=== PATIENT | female | born 1975 | race Caucasian/White ===

== ENCOUNTER → 2018-11-18 | Outpatient (CLI) | payer OTHER ==
--- NOTE | 2018-11-22 12:17 | MM ---
Reason for exam: screening (asymptomatic). Last mammogram was performed 5 years and 3 months ago. History: Took hormonal contraceptives for 10 years beginning at age 15. Physical Findings: A clinical breast exam by your physician is recommended on an annual basis and results should be correlated with mammographic findings. MG Screening Mammo w CAD Bilateral CC and MLO view(s) were taken. Prior study comparison: August 21, 2013, CAD bilateral diagnostic mammogram. April 15, 2012, bilateral digital screening mammo w/CAD. The breast tissue is heterogeneously dense. This may lower the sensitivity of mammography. No suspicious abnormality. No significant changes when compared with prior studies. ASSESSMENT: Negative, BI-RAD 1 RECOMMENDATION: Routine screening mammogram of both breasts in 1 year.
== END | disposition home or self-care (01) ==
LOC: RADMAMWWP 13:08
PROVIDERS: ATTEND Obstetrics & Gynecology
DX: Z12.31 Encounter for screening mammogram for malignant neoplasm of breast (principal)
CPT/HCPCS: 77067

== ENCOUNTER → 2019-12-19 | Outpatient (CLI) | payer OTHER ==
--- NOTE | 2019-12-21 14:05 | EST ---
EXERCISE STRESS AGE: 42 SEX: F HT: 64 WT: PROTOCOL: Stress Echo STAGE: 3 DURATION OF EXERCISE: 7:45 HEART RATE REST: 70 BLOOD PRESSURE REST: 135/88 MAXIMUM HEART RATE ACHIEVED: 167 MAXIMUM BLOOD PRESSURE: 137/76 85% MPHR: 148 100% MPHR: 174 METS: 9.3 INDICATIONS: Chest pain. CLINICAL INFORMATION: Stress Data: Pretesting physical examination showed a heart rate of 70, pressure is 135/88 mmHg. Baseline EKG showed sinus mechanism. The patient exercised on treadmill according to [place] protocol for a total of 7 minutes and 45 seconds and achieved 9.3 METS. Max heart rate was 170 which is about 98% of maximum predicted heart rate. Maximum blood pressure was 167/76 mmHg. Clinically the patient did not have no symptoms of chest pain or chest discomfort. The EKG did not show any significant ST or T-wave abnormalities concerning for ischemia. CONCLUSION: 1. Excellent exercise tolerance. 2. Normal EKG in response to exercise. MMODL / IJN: [id number] /
== END | disposition home or self-care (01) ==
LOC: RADNMMAIN 08:15
PROVIDERS: ATTEND Family Medicine
DX: I10 Essential (primary) hypertension (principal); R07.89 Other chest pain
CPT/HCPCS: 93017

== ENCOUNTER → 2020-04-11 | Outpatient (CLI) | payer OTHER ==
--- NOTE | 2020-04-12 10:10 | MM ---
Reason for exam: additional evaluation requested from abnormal screening. Last mammogram was performed 1 month ago. History: Took hormonal contraceptives for 10 years beginning at age 15. Physical Findings: Nurse did not find any significant physical abnormalities on exam. MG Work Up Mamm w CAD LT LM, XCCM, and spot compression MLO view(s) were taken of the left breast. Prior study comparison: March 19, 2020, bilateral MG screening mammo w CAD. November 18, 2018, bilateral MG screening mammo w CAD. The breast tissue is heterogeneously dense. This may lower the sensitivity of mammography. Focal asymmetry present on compression and ML. This finding is changed when compared with previous exams. These results were verbally communicated with the patient and result sheet given to the patient on 04/11/20. ASSESSMENT: Incomplete: need additional imaging evaluation, BI-RAD 0 RECOMMENDATION: Ultrasound of the left breast.
--- NOTE | 2020-04-12 10:11 | USB ---
Reason for exam: additional evaluation requested from abnormal screening. History: Took hormonal contraceptives for 10 years beginning at age 15. US Breast Workup Limited LT Technologist: Pau Kerr Left limited breast ultrasound including focal area of concern, retroareolar and axilla demonstrates a 0.5 x 0.6 x 0.4cm circular, cystic lesion at 3 o'clock and a 0.4 x 0.3 x 0.3cm circular, cystic lesion at 6 o'clock. These results were verbally communicated with the patient and result sheet given to the patient on 04/11/20. ASSESSMENT: Benign, BI-RAD 2 RECOMMENDATION: Follow-up diagnostic mammogram of the left breast in 6 months.
== END | disposition home or self-care (01) ==
LOC: RADMAMWWP 10:32
PROVIDERS: ATTEND Family Medicine
DX: R92.8 Other abnormal and inconclusive findings on diagnostic imaging of breast (principal)
CPT/HCPCS: 77065

== ENCOUNTER → 2021-05-27 | Outpatient (CLI) | payer OTHER ==
--- NOTE | 2021-05-27 15:05 | MM ---
Reason for exam: clinical finding. Last mammogram was performed 1 year and 1 month ago. History: Took hormonal contraceptives for 10 years beginning at age 15. Physical Findings: Nurse did not find any significant physical abnormalities on exam. MG 3D Diag Mammo W/Cad JABIER Bilateral CC and MLO view(s) were taken. Spot compression CC, spot compression LM, and LM view(s) were taken of the left breast. Prior study comparison: March 19, 2020, bilateral MG screening mammo w CAD. The breast tissue is extremely dense which could obscure a lesion on mammography. Finding: There are intermediate concern, suspicious grouped/clustered fine calcifications in the 3 o'clock outer quadrant, middle position of the left breast. No significant changes in finding since March 19, 2020. These results were verbally communicated with the patient and result sheet given to the patient on 05/27/21. ASSESSMENT: Suspicious, BI-RAD 4 RECOMMENDATION: Stereotactic core biopsy of the left breast. Called Dr. Choe's office with mammographic findings and has scheduled an appointment for the patient for 07/10/20 at 11:[address] Wren. Biopsy scheduled for 06/16/21 at 9:30. PRELIMINARY REPORT CALLED AND FAXED TO DR. WREN ON 05/27/21.
== END | disposition home or self-care (01) ==
LOC: RADMAMWWP 13:07
PROVIDERS: ATTEND Obstetrics & Gynecology
DX: R92.8 Other abnormal and inconclusive findings on diagnostic imaging of breast (principal); N64.4 Mastodynia
CPT/HCPCS: 77062; 77066

== ENCOUNTER → 2021-06-16 | Day surgery (SDC) | payer OTHER ==
[2021-06-16 09:46] VITALS: RESP 16
[2021-06-16 10:45] VITALS: BP 138/92; PULSE 102; TEMP 98.6
--- NOTE | 2021-06-16 10:58 | MM ---
EXAMINATION TYPE: MG stereo VAD BX LT DATE OF EXAM: 06/16/2021 COMPARISON: Prior mammogram May 27, 2021 and older studies CLINICAL HISTORY: Abnormal mammogram, suspicious group of calcifications. TECHNIQUE: Stereotactic guided core biopsy of left breast with clip placement and follow-up two-view mammogram. FINDINGS: The procedure of stereotactic guided core biopsy was explained to the patient. Benefits, alternatives, and risks were discussed. An informed consent was then obtained. The [facility] pathway for biopsy was chosen. Shortness pathway was lateral approach. I performed the localization, then performed the remainder of the procedure. Overlying Skin is cleansed with Betadine. Lidocaine was used as anesthetic into the skin and deeper tissue. Lidocaine with epinephrine is used as anesthetic into the deeper tissue. A vacuum assisted biopsy gun was used to obtain multiple core samples. The patient tolerated the procedure well without any immediate complication. The patient was kept in the radiology department for short stay after the procedure and then discharged home in stable condition. Targeted calcifications are identified in specimen mammogram. Post biopsy mammogram shows the clip to appear in satisfactory position relative to the targeted area of concern on the preprocedure images. IMPRESSION: SUCCESSFUL, UNCOMPLICATED STEREOTACTIC GUIDED CORE BIOPSY OF AREA OF CONCERN IN THE LEFT BREAST, FULL PATHOLOGY RESULTS TO FOLLOW. Low index of suspicion noted at time of procedure. 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 Recommendation Surgical consult of the left breast. MAGALI
== END ==
LOC: RADMAMWWP 09:27
PROVIDERS: ATTEND Surgery
DX: D05.12 Intraductal carcinoma in situ of left breast (principal); Z17.0 Estrogen receptor positive status [ER+]
CPT/HCPCS: 88305; 88342; 88341; 19081; A4648; J2001

== ENCOUNTER 2021-07-28 07:50 | Day surgery (SDC) | payer OTHER ==
[2021-07-23 15:18] VITALS: BMI 24.9
--- NOTE | 2021-07-28 07:38 | P.GSHP ---
History of Present Illness H&P Date: 07/28/21 Chief Complaint: Left breast cancer 45-year-old female recently diagnosed with a suspicious area of calcifications left breast. Stereotactic core biopsy demonstrated high-grade DCIS. Patient was having some mild left breast pain prior to the diagnosis. She does not feel any masses. Family history of rectal cancer and lung cancer in 2 of her sisters. No family history of breast cancer. Patient underwent recent genetic testing by oncology that was negative. Past Medical History Past Medical History: Asthma, Cancer Additional Past Medical History / Comment(s): Stage 0 left breast cancer. History of Any Multi-Drug Resistant Organisms: None Reported Past Surgical History: Tubal Ligation, Uterine Ablation Additional Past Surgical History / Comment(s): uterine ablation Past Anesthesia/Blood Transfusion Reactions: Postoperative Nausea & Vomiting (PONV) Past Psychological History: No Psychological Hx Reported Smoking Status: Never smoker Past Alcohol Use History: Occasional Past Drug Use History: None Reported - Past Family History Mother Family Medical History: Congestive Heart Failure (CHF), Deep Vein Thrombosis (DVT) Additional Family Medical History / Comment(s): mother passedaway 2 yrs ago Medications and Allergies Home Medications Medication Instructions Recorded Confirmed Type Cetirizine HCl/Pseudoephedrine 1 each PO DAILY 08/10/14 07/23/21 History [Zyrtec-D Tablet] Fluticasone/Salmeterol [Advair 1 inhalation PO BID PRN 06/05/21 07/23/21 History 250-50 Diskus] Triamcinolone Acetonide [Nasacort] 1 spray EA NOSTRIL DIRECTED PRN 07/23/21 07/23/21 History Allergies Allergy/AdvReac Type Severity Reaction Status Date / Time No Known Allergies Allergy Verified 07/23/21 15:07 Surgical - Exam Physical exam: General: Well-developed, well-nourished HEENT: Normocephalic, sclerae nonicteric Right breast: No masses, no adenopathy Left breast: Mild induration at biopsy site, no mass, no adenopathy Abdomen: Nontender, nondistended Extremities: No edema Neuro: Alert and oriented Assessment and Plan (1) Cancer of left breast Narrative/Plan: 45-year-old female with stage 0 left breast cancer. We'll proceed with left breast wire localization lumpectomy with sentinel lymph node biopsy at this time. Risks of bleeding, infection, scarring, numbness, dimpling, pain, recurrence, weakness, lymphedema, possible need for further procedures. Patient understands and wishes to proceed. Status: Acute Code(s): C50.912 - MALIGNANT NEOPLASM OF UNSPECIFIED SITE OF LEFT FEMALE BREAST SNOMED Code(s): 447101655
[~2021-07-28 07:50] MED LIST: ACETAMINOPHEN TAB 500 MG TAB PO PRN; ALPRAZolam 0.5 MG TAB PO PRN; DEXAMETHASONE SOD PHOSPHATE 4 MG/ML 1 ML VIAL IV ONE; HEPARIN SODIUM,PORCINE/PF 5,000 UNIT/0.5 ML SYRINGE SQ PRN; HYDROmorphone 0.5 MG/0.5 ML SYRINGE IVP PRN; LACTATED RINGERS 1,000 ML IV SCH; ONDANSETRON 4 MG/2 ML VIAL IVP ONE; Pre Op ABX Message 1 EACH MISC MISCELLANE ONE
[2021-07-28] MEDS ORDERED: LIDOCAINE 1% INJ 10MG/ML (20 ML MDV) SQ ONE (09:43)
[2021-07-28] MEDS ORDERED: BUPIVACAIN-EPI 0.25%-1:200,000 30 ML VIAL SQ ONE ×3 (10:27→11:00)
[2021-07-28] MEDS ORDERED: diphenhydrAMINE 50 MG/ML 1 ML VIAL ONE (10:31)
[2021-07-28] MEDS ORDERED: MIDAZOLAM 2 MG/2 ML VIAL ONE (10:31)
[2021-07-28] MEDS ORDERED: fentaNYL (PF) 50 MCG/ML 2 ML AMP ONE (10:31)
[2021-07-28] MEDS ORDERED: HYDROmorphone (PF) 1 MG/ML ONE (10:31)
[2021-07-28] MEDS ORDERED: LIDOCAINE 1% INJ 10MG/ML (20 ML MDV) ONE (10:31)
[2021-07-28] MEDS ORDERED: PROPOFOL 10 MG/ML 20 ML VIAL IV ONE (10:31)
--- NOTE | 2021-07-28 10:31 | NM ---
EXAMINATION TYPE: NM sentinel node injection DATE OF EXAM: 07/28/2021 COMPARISON: 05/27/2021 HISTORY: 45-year-old female with left breast biopsy-proven DCIS, scheduled lumpectomy and sentinel no de dissection. TECHNIQUE AND FINDINGS: The procedure of sentinel lymph node injection was explained to the patient. The benefits, alternatives, and risks were discussed. An informed consent was then obtained. Overlying skin is cleaned with sterile alcohol. Following this, 515 uCi Tc99m Tilmanocept was inject ed in the upper outer aspect of the left nipple intradermally. The patient tolerated the procedure well without any immediate complication. The patient was kept in the radiology department for short stay after the procedure and then taken to surgery for surgical p rocedure what is presumed intraoperative gamma probe will be used for sentinel lymph node detection. IMPRESSION: Successful left breast radiotracer injection for sentinel node localization as above.
[2021-07-28] MEDS ORDERED: ceFAZolin 1,000 MG VIAL IVPB ONE (10:45)
[2021-07-28] MEDS ORDERED: HYDROcodone/APAP 5-325MG 1 EACH TAB PO PRN (12:02)
[2021-07-28] MEDS ORDERED: NALOXONE 0.4 MG/ML 1 ML VIAL IV PRN (12:02)
[2021-07-28 12:03] VITALS: TEMP 97.2
--- NOTE | 2021-07-28 12:05 | P.OP ---
Date of Procedure: 07/28/21 Procedure(s) Performed: PREOPERATIVE DIAGNOSIS: Left breast cancer POSTOPERATIVE DIAGNOSIS: Same PROCEDURE: Left Breast wire localization lumpectomy with sentinel lymph node biopsy SURGEON: Siena EBL: Minimal ANESTHESIA: General COMPLICATIONS: None OPERATIVE PROCEDURE: Patient was placed on the operating room table in the supine position. 2 mL of methylene blue was injected into the subareolar space. The breast was then massaged for 5 minutes. The breast was prepped and draped in usual sterile fashion. The left axilla was addressed at that time. The hot spot in the left axilla was identified. A small curvilinear incision was made using the scalpel. Dissection down through the subcutaneous tissues took place using electrocautery. Using the neoprobe I identified a total of sentinel lymph nodes. None of these were blue in color. These had benign exam characteristics. These were all removed and sent to pathology for permanent sectioning. The surgical site was inspected and no bleeding was seen. The subcutaneous tissues were closed using 3-0 Vicryl sutures. The skin was closed using 4-0 Monocryl sutures. The wire entrance site was then addressed. This was present at the 3:00 location. A curvilinear incision was made adjacent to the wire entrance site. I followed the wire down into the breast tissue. An adequate lumpectomy specimen then took place around the wire. Margins of 1.5-2 cm worth attempted to be achieved. Palpation of the specimen suggested that the medial margin was somewhat close. I took an additional margin medially and this margin was painted the appropriate color on the new margin side. The initial specimen was also painted the appropriate 6 colors. Clips were used to identify the lumpectomy cavity. The clip was confirmed to be within the lumpectomy specimen by radiology. The subcutaneous tissues were closed using 3-0 Vicryl sutures. The skin was closed using a running 4-0 Monocryl stitch. Skin glue was then applied. DISPOSITION: Stable to recovery room
[2021-07-28] MEDS ORDERED: KETOROLAC 15 MG/ML 1 ML VIAL IVP ONE ×2 (12:17→12:36)
--- NOTE | 2021-07-28 13:03 | MM ---
EXAMINATION TYPE: MG pre op needle loc LT, MG surgical specimen LT DATE OF EXAM: 07/28/2021 COMPARISON: 06/16/2021 CLINICAL HISTORY: 45-year-old female with biopsy-proven left breast DCIS here for lumpectomy. R92.8. TECHNIQUE: Needle localization with wire placement and surgical excision of area of concern in the 3: 00 left breast. FINDINGS: The procedure of needle localization with wire placement and than surgical excision was exp lained to the patient. Benefits, alternatives, and risks were discussed. An informed consent was th en obtained. The shortest pathway for procedure was chosen. Shortest pathway was a lateral approach. The overlyin g skin was prepped and draped in usual sterile fashion. Lidocaine was used as anesthetic into the sk in and subcutaneous tissue up to the level of area of concern. A 7 cm Kopan's needle was used. It w as placed via a lateral approach under mammographic guidance. Subsequent 90 degrees mammogram show t he needle to be in satisfactory position relative to the targeted area. At this point, wire was plac ed and the needle was withdrawn. The wire was fixed to patient's skin. Images were marked for surge on. The patient tolerated the procedure well without any immediate complication. The patient was kept in the radiology department for short stay after the procedure and then taken to surgery for surgical e xcision. Residual calcifications, clip, and wire are identified in specimen mammogram. The patient was kept in hospital for short stay after the procedure and then discharged home in stable condition. IMPRESSION: Successful, uncomplicated needle localization with wire placement and surgical excision of site of bi opsy-proven DCIS in the 3:00 left breast, full pathology results to follow.
[2021-07-28 14:42] VITALS: BP 124/81; PULSE 95; RESP 18
== END 2021-07-28 15:27 | disposition home or self-care (01) ==
LOC: OR 07:50
PROVIDERS: ATTEND Surgery
DX: D05.12 Intraductal carcinoma in situ of left breast (principal); Z80.0 Family history of malignant neoplasm of digestive organs; Z80.1 Family history of malignant neoplasm of trachea, bronchus and lung; J45.909 Unspecified asthma, uncomplicated; Z98.51 Tubal ligation status; Z98.890 Other specified postprocedural states; Z82.49 Family history of ischemic heart disease and other diseases of the circulatory system; Z79.899 Other long term (current) drug therapy
CPT/HCPCS: 81025; 76098; 19281; 38792; 19301; 38525; C1819; A9520; J2250; J1200; J1100; J2405; J0690; J2001; J3010; J1170; J1885; J2704; J1644; 88307; 88341; 88342

== ENCOUNTER 2021-08-26 10:16 | Day surgery (SDC) | payer OTHER ==
[2021-08-22 10:42] VITALS: BMI 24.9
[~2021-08-26 10:16] MED LIST changes: -ALPRAZolam 0.5 MG TAB PO PRN; +DESMOPRESSIN ACETATE 16 MCG in SODIUM CHLORIDE 0.9% 50 ML IVPB PRN; -HEPARIN SODIUM,PORCINE/PF 5,000 UNIT/0.5 ML SYRINGE SQ PRN; -Pre Op ABX Message 1 EACH MISC MISCELLANE ONE
[2021-08-26] MEDS ORDERED: LIDOCAINE 1% (10MG/ML) FOR IV START INTRADERMA ONE (11:09)
--- NOTE | 2021-08-26 12:35 | P.GSHP ---
History of Present Illness H&P Date: 08/26/21 Chief Complaint: Left breast cancer 45-year-old female underwent left breast lumpectomy with sentinel lymph node biopsy on 07/28. Postoperatively the patient developed significant ecchymosis and hematoma formation at both operative sites. Final pathology showed a 9 mm high-grade DCIS. Closest margin was 1 mm and that was anteriorly. Patient was seen by hematology/oncology. The patient had workup for possible bleeding disorder which thus far has come back clear. Patient has been seen by radiation oncology as well. Patient here today for reexcision anterior margin and evacuation hematoma. Past Medical History Past Medical History: Asthma, Cancer Additional Past Medical History / Comment(s): Stage 0 left breast cancer History of Any Multi-Drug Resistant Organisms: None Reported Past Surgical History: Breast Surgery, Tubal Ligation, Uterine Ablation Additional Past Surgical History / Comment(s): uterine ablation. left breast lumpectomy Past Anesthesia/Blood Transfusion Reactions: Postoperative Nausea & Vomiting (PONV) Past Psychological History: No Psychological Hx Reported Smoking Status: Never smoker Past Alcohol Use History: Occasional Past Drug Use History: None Reported - Past Family History Mother Family Medical History: Congestive Heart Failure (CHF) Additional Family Medical History / Comment(s): mother Medications and Allergies Home Medications Medication Instructions Recorded Confirmed Type Cetirizine HCl/Pseudoephedrine 1 each PO DAILY 08/10/14 08/26/21 History [Zyrtec-D Tablet] traMADol HCL [Ultram] 50 mg PO Q6HR PRN 08/22/21 08/26/21 History Allergies Allergy/AdvReac Type Severity Reaction Status Date / Time No Known Allergies Allergy Verified 08/22/21 10:33 Surgical - Exam Vital Signs Temp Pulse Resp BP Pulse Ox 98.7 F 81 16 133/72 100 08/26/21 11:01 08/26/21 11:01 08/26/21 11:01 08/26/21 11:08/26/21 11:01 Physical exam: General: Well-developed, well-nourished HEENT: Normocephalic, sclerae nonicteric Right breast: No masses, no adenopathy Left breast: Ecchymosis, hematoma formation at both operative sites, mild tenderness Abdomen: Nontender, nondistended Extremities: No edema Neuro: Alert and oriented Assessment and Plan (1) Cancer of left breast Narrative/Plan: 45-year-old female with history of left breast cancer. We'll proceed with ree xcision anterior margin lumpectomy site with evacuation of hematoma. Intraoperatively we'll consider evacuation hematoma at axillary incision site as well. Risks of bleeding, infection, possible further findings of malignancy and positive margins, scarring, dimpling, pain reviewed. She understands and wishes to proceed. Current Visit: No Status: Acute Code(s): C50.912 - MALIGNANT NEOPLASM OF UNSPECIFIED SITE OF LEFT FEMALE BREAST SNOMED Code(s): 570447101
[2021-08-26] MEDS ORDERED: MIDAZOLAM 2 MG/2 ML VIAL IVP ONE (12:50)
[2021-08-26] MEDS ORDERED: LIDOCAINE 1% INJ 10MG/ML (20 ML MDV) ONE (13:22)
[2021-08-26] MEDS ORDERED: MIDAZOLAM 2 MG/2 ML VIAL ONE (13:22)
[2021-08-26] MEDS ORDERED: ESMOLOL 100 MG/10 ML VIAL ONE (13:22)
[2021-08-26] MEDS ORDERED: fentaNYL (PF) 50 MCG/ML 2 ML AMP ONE (13:22)
[2021-08-26] MEDS ORDERED: PROPOFOL 10 MG/ML 20 ML VIAL IV ONE (13:22)
[2021-08-26] MEDS ORDERED: diphenhydrAMINE 50 MG/ML 1 ML VIAL ONE (13:22)
[2021-08-26] MEDS ORDERED: BUPIVACAIN-EPI 0.25%-1:200,000 30 ML VIAL SQ ONE (13:37)
[2021-08-26] MEDS ORDERED: SODIUM CHLORIDE 0.9% 50 ML with ceFAZolin 2,000 MG IV ONE ×2 (13:43)
[2021-08-26] MEDS ORDERED: NALOXONE 0.4 MG/ML 1 ML VIAL IV PRN (14:15)
--- NOTE | 2021-08-26 14:19 | P.OP ---
Date of Procedure: 08/26/21 Procedure(s) Performed: PREOPERATIVE DIAGNOSIS: Left breast cancer POSTOPERATIVE DIAGNOSIS: Same PROCEDURE: Left breast re-lumpectomy with evacuation hematoma SURGEON: Siena EBL: Minimal ANESTHESIA: General COMPLICATIONS: None OPERATIVE PROCEDURE: Patient was placed on the operating room table in the supine position. Left breast was prepped and draped sterilely. Previous incision was re-incised. Hematoma cavity was entered and the hematoma was evacuated. I would estimate approximately 50 mL of old blood was evacuated. The previous Vicryl sutures were removed. I could visualize lumpectomy cavity quite well at this point. The anterior margin was removed at that point in 2 portions. The new margin was painted blue in color. The area was thoroughly irrigated. No bleeding was seen. The subcutaneous tissues were closed using 3- 0 Vicryl sutures. The skin was closed using a running 4-0 Monocryl stitch. Skin glue was then applied. DISPOSITION: Stable to recovery room
[2021-08-26 14:32] VITALS: TEMP 97.4
[2021-08-26 15:38] VITALS: RESP 16
[2021-08-26 16:13] VITALS: PULSE 91
[2021-08-26 16:14] VITALS: BP 118/76
== END 2021-08-26 16:46 | disposition home or self-care (01) ==
LOC: OR 10:16
PROVIDERS: ATTEND Surgery
DX: D05.12 Intraductal carcinoma in situ of left breast (principal); J45.909 Unspecified asthma, uncomplicated
CPT/HCPCS: 19301; J2250; J1200; J1100; J2405; J0690; J2001; J3010; J2704; J2597; 88307

== ENCOUNTER → 2021-10-09 | Outpatient (CLI) | payer OTHER ==
--- NOTE | 2021-10-09 14:32 | CT ---
EXAMINATION TYPE: CT sinus wo con DATE OF EXAM: 10/09/2021 COMPARISON: CT brain dated 05/15/2016 HISTORY: Chronic Sinusitis CT DLP: 619 mGycm. Automated Exposure Control for Dose Reduction was Utilized. TECHNIQUE: CT scan of the sinuses is performed without contrast, axial images are obtained, coronal r eformatted images are also reviewed. FINDINGS: Deviated bony nasal septum convex to the right side with a bony spur. Right middle benjamin bullosa. Un remarkable inferior turbinates. Mucosal thickening of the midportion of the nasal fossa bilaterally. Obstructed infundibulum bilaterally by mucosal thickening. Mucosal thickening of the middle meatus bi laterally more on the left side. Mucosal thickening of the alveolar recess of the left maxillary sinu s with milder mucosal thickening of the right maxillary sinus. Intact bony boundary of the maxillary sinuses. Mucosal thickening of the ethmoid air cells. Milder mucosal thickening of the sphenoid sinus. Obstruc dorita sphenoethmoidal recesses by mucosal thickening more on the right side. Unremarkable frontal sinus . Clear mastoid air cells. Unremarkable visualized portion of the brain and orbits. IMPRESSION: Mucosal thickening of the paranasal sinuses sparing the frontal sinus suggestive of chronic sinusitis . Other findings as described above.
== END | disposition home or self-care (01) ==
LOC: RADCTMAIN 13:30
PROVIDERS: ATTEND Otolaryngology
DX: J32.9 Chronic sinusitis, unspecified (principal)
CPT/HCPCS: 70486

== ENCOUNTER → 2022-04-01 | Outpatient (CLI) | payer OTHER ==
--- NOTE | 2022-04-01 14:11 | MM ---
Reason for Exam: Additional evaluation requested from prior study. Last screening mammogram was performed 11 month(s) ago. Patient History: Menarche at age 9. First Full-Term at age 14. Postmenopausal. Breast cancer, left, age 45. Patient tested for BRCA2 outcome was negative. Hormonal Contraceptives, starting at age 15 for 10 years. Currently using Tamoxifen, starting at age 45. 07/28/2021, Lumpectomy on the Left side. 07/28/2021, Malignant Core Biopsy on the left side. 06/16/2021, Malignant Core Biopsy on the left side. Prior Study Comparison: 08/21/2013 Bilateral Diagnostic Mammogram, [facility]. 11/18/2018 Bilateral Screening Mammogram, [facility]. 03/19/2020 Bilateral Screening Mammogram, [facility]. 04/11/2020 Left Diagnostic Mammogram, [facility]. 05/27/2021 Bilateral Diagnostic Mammogram, [facility]. Tissue Density: The breast tissue is heterogeneously dense. This may lower the sensitivity of mammography. Findings: Analyzed By CAD. Post surgical changes to left breast. No suspicious masses, calcifications or distortions. Overall Assessment: Benign, BI-RAD 2 Management: Screening Mammogram of both breasts in 1 year. A clinical breast exam by your physician is recommended on an annual basis and results should be correlated with mammographic findings. This exam should not preclude additional follow-up of suspicious palpable abnormalities. Results were given to the patient verbally at the time of exam. Electronically signed and approved by: José Luis Rodriguez DO
== END | disposition home or self-care (01) ==
LOC: RADMAMWWP 09:03
PROVIDERS: ATTEND Surgery
DX: R92.8 Other abnormal and inconclusive findings on diagnostic imaging of breast (principal)
CPT/HCPCS: 77062; 77066

== ENCOUNTER → 2023-04-02 | Outpatient (CLI) | payer OTHER ==
--- NOTE | 2023-04-02 10:34 | MM ---
Reason for Exam: Clinical finding. Last screening mammogram was performed 12 month(s) ago. Indicated Problems: Pain of the left side (Focal) for 3 Month(s) : ALONG SURGERY SITE. . Patient History: Menarche at age 9. First Full-Term at age 14. Postmenopausal. Breast cancer, left, age 45. Previous chest radiation therapy at age 45. Patient tested for BRCA2 outcome was negative. Hormonal Contraceptives, starting at age 15 for 10 years. Currently using Tamoxifen, starting at age 45. 07/28/2021, Lumpectomy on the Left side. 07/28/2021, Malignant Core Biopsy on the left side. 06/16/2021, Malignant Core Biopsy on the left side. Prior Study Comparison: 04/15/2012 Bilateral Screening Mammogram, [facility]. 08/21/2013 Bilateral Diagnostic Mammogram, [facility]. 11/18/2018 Bilateral Screening Mammogram, [facility]. 03/19/2020 Bilateral Screening Mammogram, [facility]. 04/11/2020 Left Diagnostic Mammogram, [facility]. 04/11/2020 Left Diagnostic Ultrasound, [facility]. 05/27/2021 Bilateral Diagnostic Mammogram, [facility]. 04/01/2022 Bilateral MG 3D diag mammo w/cad JABIER, [facility]. Tissue Density: The breast tissue is heterogeneously dense. This may lower the sensitivity of mammography. Findings: Analyzed By CAD. Post lumpectomy change of the left breast far posteriorly. Slightly anterior and lateral to the lumpectomy site there is a nodular density likely reflects a portion of the scar track. Precautionary ultrasound is recommended. No right breast mass seen. No suspicious calcifications noted. Overall Assessment: Incomplete: need additional imaging evaluation, BI-RAD 0 Management: Diagnostic Breast Ultrasound of the left breast. . Results were given to the patient verbally at the time of exam. Patient should continue monthly self-breast exams. A clinical breast exam by your physician is recommended on an annual basis. This exam should not preclude additional follow-up of suspicious palpable abnormalities. Note on Johanne scores and lifetime risk: 1. A Johanne score greater than 3% is considered moderate risk. If this is the case, consider specialist referral to assess eligibility for a risk reducing agent. 2. If overall lifetime risk for the development of breast cancer is 20% or higher, the patient may qualify for future screening with alternating mammogram and breast MRI. Electronically signed and approved by: Raman Horowitz M.D. Radiologis
--- NOTE | 2023-04-02 10:35 | USB ---
Reason for Exam: Additional evaluation requested from abnormal screening. Patient History: Menarche at age 9. First Full-Term at age 14. Postmenopausal. Breast cancer, left, age 45. Previous chest radiation therapy at age 45. Patient tested for BRCA2 outcome was negative. Hormonal Contraceptives, starting at age 15 for 10 years. Currently using Tamoxifen, starting at age 45. 07/28/2021, Lumpectomy on the Left side. 07/28/2021, Malignant Core Biopsy on the left side. 06/16/2021, Malignant Core Biopsy on the left side. Technique: Method: Targeted. Prior Study Comparison: 04/11/2020 Left Diagnostic Mammogram, [facility]. 05/27/2021 Bilateral Diagnostic Mammogram, [facility]. 04/01/2022 Bilateral MG 3D diag mammo w/cad JABIER, [facility]. Findings: The upper outer quadrant of the left breast, the axilla of the left breast and the retroareolar of the left breast were scanned. No solid or cystic masses are identified. Scar track is noted without solid or cystic mass.. Overall Assessment: Benign, BI-RAD 2 Management: Diagnostic Mammogram of both breasts in 1 year. A clinical breast exam by your physician is recommended on an annual basis and results should be correlated with mammographic findings. This exam should not preclude additional follow-up of suspicious palpable abnormalities. Results were given to the patient verbally at the time of exam. Electronically signed and approved by: Raman Horowitz M.D. Radiologis
== END | disposition home or self-care (01) ==
LOC: RADMAMWWP 09:01
PROVIDERS: ATTEND Surgery
DX: R92.8 Other abnormal and inconclusive findings on diagnostic imaging of breast (principal); Z78.0 Asymptomatic menopausal state; Z85.3 Personal history of malignant neoplasm of breast
CPT/HCPCS: 77062; 77066

== ENCOUNTER → 2024-04-11 | Outpatient (CLI) | payer OTHER ==
--- NOTE | 2024-04-11 15:10 | MM ---
Reason for Exam: Follow-up at short interval from prior study. Last screening mammogram was performed 12 month(s) ago. Patient History: Menarche at age 9. First Full-Term at age 14. Postmenopausal. Breast cancer, left, age 45. Previous chest radiation therapy at age 45. Patient tested for BRCA2 outcome was negative. Hormonal Contraceptives, starting at age 15 for 10 years. Currently using Tamoxifen, starting at age 45. 2023, Reduction on the Right side. Reduction on the Right side. 07/28/2021, Lumpectomy on the Left side. 07/28/2021, Malignant Core Biopsy on the left side. 06/16/2021, Malignant Core Biopsy on the left side. Niece had breast cancer, age 38. Prior Study Comparison: 05/27/2021 Bilateral Diagnostic Mammogram, [facility]. 04/01/2022 Bilateral MG 3D diag mammo w/cad JABIER, [facility]. 04/02/2023 Bilateral MG 3D diag mammo w/cad JABIER, [facility]. Tissue Density: Left: The breasts are heterogeneously dense, which may obscure small masses. Findings: Analyzed By CAD. Surgical changes are seen. No suspicious calcifications or dominant mass. The right breast mammogram was not performed at the request of the referring physician due to the patient's recent surgery. The right breast could be evaluated prior to the one year follow-up as clinically warranted given that it was not performed on today's exam. Overall Assessment: Benign, BI-RAD 2 Management: Screening Mammogram of both breasts in 1 year. . Results were given to the patient verbally at the time of exam. Patient should continue monthly self-breast exams. A clinical breast exam by your physician is recommended on an annual basis. This exam should not preclude additional follow-up of suspicious palpable abnormalities. Note on Johanne scores and lifetime risk: 1. A Johanne score greater than 3% is considered moderate risk. If this is the case, consider specialist referral to assess eligibility for a risk reducing agent. 2. If overall lifetime risk for the development of breast cancer is 20% or higher, the patient may qualify for future screening with alternating mammogram and breast MRI. [facility], , 04/11/2024 3:07 PM. Electronically signed and approved by: Martinez Parrish M.D. Radiologis
== END | disposition home or self-care (01) ==
LOC: RADMAMWWP 14:27
PROVIDERS: ATTEND Radiology Radiation Oncology
DX: D05.12 Intraductal carcinoma in situ of left breast
CPT/HCPCS: 77061; 77065

== ENCOUNTER 2024-09-08 18:12 | Observation (INO) | payer BC ==
[2024-09-08 18:55] LABS: Basophils % (A) 0 %; Eosinophils # (A) 0.4 k/uL (0-0.7); Eosinophils % (A) 5 %; HCT 41.8 % (34.0-46.0); HGB 13.5 gm/dL (11.4-16.0); Lymphocytes # (A) 2.1 k/uL (1.0-4.8); Lymphocytes % (A) 27 %; MCH 28.5 pg (25.0-35.0); MCHC 32.4 g/dL (31.0-37.0); MCV 87.9 fL (80.0-100.0); Mean Platelet Volume 7.1; Monocytes # (A) 0.3 k/uL (0-1.0); Monocytes % (A) 4 %; Neutrophils # (A) 4.9 k/uL (1.3-7.7); Neutrophils % (A) 63 %; Platelet Count 259 k/uL (150-450); RBC 4.76 m/uL (3.80-5.40); RDW 13.5 % (11.5-15.5); WBC 7.7 k/uL (3.8-10.6)
[2024-09-08 19:01] LABS: ALT 28 U/L (4-34); AST 25 U/L (14-36); African American GFR (CKD) >90 (>60 ml/min/1.73 sqM); Albumin 4.8 g/dL (3.5-5.0); Alkaline Phosphatase 79 U/L (38-126); Anion Gap 11 mmol/L; Blood Urea Nitrogen 9 mg/dL (7-17); Calcium 9.9 mg/dL (8.4-10.2); Carbon Dioxide 26 mmol/L (22-30); Chloride 100 mmol/L (98-107); Glucose 99 mg/dL (74-99); Magnesium 1.7 mg/dL (1.6-2.3); Non-African American GFR(CKD) >90 (>60 ml/min/1.73 sqM); Potassium 3.8 mmol/L (3.5-5.1); Sodium 137 mmol/L (137-145); Total Bilirubin 0.7 mg/dL (0.2-1.3); Total Protein 7.9 g/dL (6.3-8.2)
--- NOTE | 2024-09-08 19:01 | XR ---
EXAMINATION TYPE: XR chest 2V DATE OF EXAM: 09/08/2024 6:55 PM COMPARISON: Chest radiographs from 05/15/2016 CLINICAL INDICATION: Female, 48 years old with history of Chest Pain; [facility] TECHNIQUE: XR chest 2V Frontal and lateral views of the chest. FINDINGS: Lungs/Pleura: There is no evidence of pleural effusion, focal consolidation, or pneumothorax. Pulmonary vascularity: Unremarkable. Heart/mediastinum: Cardiomediastinal silhouette is unremarkable. Musculoskeletal: No acute osseous pathology. Other findings: Surgical clips project over the left breast. IMPRESSION: No acute cardiopulmonary disease/process. [facility], , 09/08/2024 6:58 PM
--- NOTE | 2024-09-08 19:25 | ED ---
Chest Pain HPI - General Source: patient, RN notes reviewed Mode of arrival: ambulatory Limitations: no limitations - History of Present Illness MD Complaint: chest pain <Silvia Morris - Last Filed: 09/08/24 19:23> <José Luis Ambrose - Last Filed: 09/08/24 21:51> - General Chief Complaint: Chest Pain Stated Complaint: chest pain, scott arm tingling Time Seen by Provider: 09/08/24 19:15 - History of Present Illness Initial Comments: Quick Note: This is a 48-year-old female who presents to the emergency department for chest pain. States that it started 2 to 3 days ago. It initially started out feeling sharp, but states that it now feels like a pressure sensation. She has some shortness of breath. Denies any personal cardiac history, however states that her mother has a substantial cardiac history. (Silvia Morris) 48-year-old female presenting with central chest pain and pressure sensation. She has some radiation into her bilateral arms. She denies a prior history of CAD. She states her mother was diagnosed with coronary artery disease in her 50s. She is a non-smoker. Symptoms have been present for the past 2 to 3 days. No associated vomiting or diaphoresis. (José Luis Ambrose) - Related Data Home Medications Medication Instructions Recorded Confirmed Cetirizine HCl/Pseudoephedrine 1 each PO DAILY 08/10/14 08/17/22 [Zyrtec-D Tablet] Tamoxifen [Nolvadex] 10 mg PO HS 08/17/22 08/17/22 Allergies Allergy/AdvReac Type Severity Reaction Status Date / Time No Known Allergies Allergy Verified 09/08/24 18:20 Review of Systems ROS Other: All systems not noted in ROS Statement are negative. <Silvia Morris - Last Filed: 09/08/24 19:23> ROS Other: All systems not noted in ROS Statement are negative. <José Luis Ambrose - Last Filed: 09/08/24 21:51> ROS Statement: Those systems with pertinent positive or pertinent negative responses have been documented in the HPI. Past Medical History Past Medical History: Asthma, Cancer Additional Past Medical History / Comment(s): Stage 0 left breast cancer History of Any Multi-Drug Resistant Organisms: None Reported Past Surgical History: Breast Surgery, Tubal Ligation, Uterine Ablation Additional Past Surgical History / Comment(s): uterine ablation. left breast lumpectomy Past Anesthesia/Blood Transfusion Reactions: Postoperative Nausea & Vomiting (PONV) Past Psychological History: No Psychological Hx Reported Smoking Status: Never smoker Past Alcohol Use History: Occasional Past Drug Use History: None Reported - Past Family History Mother Family Medical History: Congestive Heart Failure (CHF) Additional Family Medical History / Comment(s): mother <Silvia Morris - Last Filed: 09/08/24 19:23> General Exam Limitations: no limitations <Silvia Morris - Last Filed: 09/08/24 19:23> General appearance: alert, in no apparent distress Head exam: Present: atraumatic, normocephalic Eye exam: Present: normal appearance, PERRL ENT exam: Present: normal exam Neck exam: Present: normal inspection. Absent: tenderness, meningismus Respiratory exam: Present: normal lung sounds bilaterally. Absent: respiratory distress, wheezes Cardiovascular Exam: Present: regular rate, normal rhythm GI/Abdominal exam: Present: soft. Absent: distended Extremities exam: Present: normal inspection, normal capillary refill. Absent: calf tenderness Neurological exam: Present: alert, oriented X3, CN II-XII intact. Absent: motor sensory deficit Psychiatric exam: Present: normal affect, normal mood Skin exam: Present: warm, dry, intact <José Luis Ambrose - Last Filed: 09/08/24 21:51> - General Exam Comments Initial Comments: Visual Physical Exam Vital signs reviewed General: Well-appearing, nontoxic, no acute distress. Head: Normocephalic, atraumatic Eyes: PERRLA, EOMI ENT: Airway patent Chest: Nonlabored breathing Skin: No visual rash, normal skin tone Neuro: Alert and oriented 3 Musculoskeletal: No gross abnormalities (Silvia Morris) Course Vital Signs 09/08/24 18:17 Temperature 97.5 F L Pulse Rate 84 Respiratory 20 Rate Blood Pressure 154/88 O2 Sat by Pulse 100 Oximetry Chest Pain [facility] <Silvia Morris - Last Filed: 09/08/24 19:23> <José Luis Ambrose - Last Filed: 09/08/24 21:51> - [facility] I performed the QuickNote portion of this chart. Signed Silvia Morris PA-C. (Silvia Morris) Was pt. sent in by a medical professional or institution ([facility], [employer], urgent care, hospital, or group home...) When possible be specific @ -No Did you speak to anyone other than the patient for history (EMS, parent, family, police, friend...)? What history was obtained from this source @ -No Did you review nursing and triage notes (agree or disagree)? Why? @ -I reviewed and agree with nursing and triage notes Were old charts reviewed (outside hosp., previous admission, EMS record, old EKG, old radiological studies, urgent care reports/EKG's, group home records)? Report findings @ -No old charts were reviewed Differential Chest Pain: Stable Angina, Unstable Angina, STEMI, NSTEMI Aortic Dissection, Pneumothorax, Musculoskeletal, Esophageal Spasm GERD, Cholecystitis, Pancreatitis, Zoster, this is not meant to be an all-inclusive list. EKG interpreted by me (3pts min.). @ -Sinus rhythm rate of 83 LA interval 135, QRS duration 92, QTc 428, no ST segment elevation. X-rays interpreted by me (1pt min.). @ -Chest x-ray negative for acute findings, no consolidated pneumonia or pneumothorax CT interpreted by me (1pt min.). @ -None done U/S interpreted by me (1pt. min.). @ -None done What testing was considered but not performed or refused? (CT, X-rays, U/S, labs)? Why? @ -None What meds were considered but not given or refused? Why? @ -None Did you discuss the management of the patient with other professionals (professionals i.e. [facility], S[employer]Y NET [employer]KER, lab, RT, psych nurse, social studies department chair, mechanical systems control engineer, teacher, booking police officer, rn case manager hospice)? Give summary @ -Case discussed with Irene, will admit [facility] Was smoking cessation discussed for >3mins.? @ -No Was critical care preformed (if so, how long)? @ -No Were there social determinants of health that impacted care today? How? (Homelessness, low income, unemployed, alcoholism, drug addiction, transportation, low edu. Level, literacy, decrease access to med. care, care home, rehab)? @ -No Was there de-escalation of care discussed even if they declined (Discuss DNR or withdrawal of care, Hospice)? DNR status @ -No What co-morbidities impacted this encounter? (DM, HTN, Smoking, COPD, CAD, Canc er, CVA, ARF, Chemo, Hep., AIDS, mental health diagnosis, sleep apnea, morbid obesity)? @ -None Was patient admitted / discharged? Hospital course, mention meds given and route, prescriptions, significant lab abnormalities, going to OR and other pertinent info. @48-year-old female with chest pain and pressure, pressure sensation radiating to her bilateral arms. EKG sinus rhythm without ST segment changes. Chest x- ray is clear. Normal CBC, normal CMP, negative initial troponin. Patient does have family history of coronary artery disease. Patient will be placed in observation for serial cardiac enzymes, telemetry, cardiology consultation. Undiagnosed new problem with uncertain prognosis? @ -No Drug Therapy requiring intensive monitoring for toxicity (Heparin, Nitro, Insulin, Cardizem)? @ -No Were any procedures done? @ -No Diagnosis/symptom? @Chest pain rule out Acute, or Chronic, or Acute on Chronic? @Acute Uncomplicated (without systemic symptoms) or Complicated (systemic symptoms)? @ -Default Side effects of treatment? @ -No Exacerbation, Progression, or Severe Exacerbation? @ -No Poses a threat to life or bodily function? How? (Chest pain, [place], [place], pneumonia, PE, COPD, DKA, ARF, appy, cholecystitis, CVA, Diverticulitis, Homicidal, Suicidal, threat to staff... and all critical care pts) @ -Yes, ACS (José Luis Ambrose) Disposition <Silvia Morris - Last Filed: 09/08/24 19:23> Is patient prescribed a controlled substance at d/c from ED?: No Time of Disposition: 21:51 <José Luis Ambrose - Last Filed: 09/08/24 21:51> Clinical Impression: Chest pain Disposition: ADMITTED IP TO THIS HOSP Condition: Stable
[2024-09-08 19:36] LABS: INR 0.9 (<1.2); Prothrombin Time 10.2 sec (10.0-12.5)
[2024-09-08] MEDS ORDERED: NALOXONE 0.4 MG/ML 1 ML VIAL IV PRN (20:56)
[2024-09-08] MEDS ORDERED: ACETAMINOPHEN TAB 325 MG TAB PO PRN (20:56)
[2024-09-08] MEDS: ASPIRIN 325 MG TAB PO STA (21:27)
[2024-09-09] MEDS: ASPIRIN 81 MG PO SCH (09:12)
--- NOTE | 2024-09-09 09:53 | P.CRDCN ---
History of Present Illness History of present illness: HISTORY OF PRESENT ILLNESS: This is a 48-year-old female with a past medical history significant for asthma and breast cancer. Patient not follow with a [facility]. We have been asked to see the patient in consultation for chest pain. Patient examined at the bedside. Patient states that she has a history of breast cancer and has recently been off work for 10 months. 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 She states she has been having some intermittent chest discomfort over the past couple days. She states that she took off work due to the chest pain. She states on Wednesday she was still having chest pain that would come intermittently. She denied any radiation of the pain. She denied any associated shortness of breath, nausea, vomiting, lightheadedness, or dizziness. She is a non-smoker. She denies any known history of CAD. DIAGNOSTICS: - EKG reveals sinus mechanism with no signs of acute ischemia. - Chest xray negative for acute process. - Laboratory data: WBC 7.7. Hemoglobin 13.5. Platelet count 259. Sodium 137. Potassium 3.8. BUN 9. Creatinine 0.67. Magnesium 1.7. Troponin negative x 3. - Current home cardiac medications include none. - No previous echocardiogram, stress test, or cardiac catheterization available in EMR for review REVIEW OF SYSTEMS: At the time of my exam: CONSTITUTIONAL: Denies fever or chills. HEENT: Denies blurred vision, vision changes, or eye pain. Denies hemoptysis CARDIOVASCULAR: Denies chest pain. Denies orthopnea. Denies PND. Denies palpitations RESPIRATORY: Denies shortness of breath. GASTROINTESTINAL: Denies abdominal pain. Denies nausea or vomiting. HEMATOLOGIC: Denies bleeding disorders. GENITOURINARY: Denies any blood in urine. SKIN: Denies pruitis. Denies rash. PHYSICAL EXAM: VITAL SIGNS: Reviewed. GENERAL: Well-developed in no acute distress. HEENT: Head is normocephalic. Pupils are equal, round. Sclerae anicteric. Mucous membranes of the mouth are moist. Neck supple. No JVD or thyromegaly LUNGS: Respirations even and unlabored. Lungs essentially clear to auscultation bilaterally. HEART: Regular rate and rhythm. S1 and S2 heard. ABDOMEN: Soft. Nondistended. Nontender. EXTREMITIES: Normal range of motion. No clubbing or cyanosis. Peripheral pulses intact. No lower extremity edema NEUROLOGIC: Awake and alert. Oriented x 3. ASSESSMENT: Chest pain, troponin negative x 3 History of breast cancer History of asthma PLAN: An acute coronary event has been ruled out Obtain 2D echo to assess cardiac structure and function Begin aspirin 81 mg daily Check lipid panel and hemoglobin A1c Continue to monitor patient for an additional 24 hours. Anticipate discharge home tomorrow and will plan for outpatient stress testing. However if patient has further episodes of chest discomfort while being in the hospital, will plan for stress testing on Wednesday. Further recommendations pending patient course Nurse practitioner note has been reviewed by physician. Signing provider agrees with the documented findings, assessment, and plan of care documented by ELECTROPHYSIOLOGIST as a scribe. Past Medical History Past Medical History: Asthma, Cancer Additional Past Medical History / Comment(s): Stage 0 left breast cancer History of Any Multi-Drug Resistant Organisms: None Reported Past Surgical History: Breast Surgery, Tubal Ligation, Uterine Ablation Additional Past Surgical History / Comment(s): uterine ablation. left breast lumpectomy Past Anesthesia/Blood Transfusion Reactions: Postoperative Nausea & Vomiting (PONV) Past Psychological History: No Psychological Hx Reported Smoking Status: Never smoker Past Alcohol Use History: Occasional Past Drug Use History: None Reported - Past Family History Mother Family Medical History: Congestive Heart Failure (CHF) Additional Family Medical History / Comment(s): mother Medications and Allergies Home Medications Medication Instructions Recorded Confirmed Type Cetirizine HCl/Pseudoephedrine 1 each PO DAILY 08/10/14 08/17/22 History [Zyrtec-D Tablet] Tamoxifen [Nolvadex] 10 mg PO HS 08/17/22 08/17/22 History Allergies Allergy/AdvReac Type Severity Reaction Status Date / Time No Known Allergies Allergy Verified 09/08/24 18:20 Physical Exam Vitals: Vital Signs Temp Pulse Resp BP Pulse Ox 09/09/24 05:37 98.2 F 68 16 127/80 97 09/08/24 18:17 97.5 F L 84 20 154/88 100 Intake and Output 09/08/24 09/09/24 09/09/24 22:59 06:59 14:59 Other: Weight 66.678 kg Results 09/08/24 18:37 09/08/24 18:37 Cardiac Enzymes 09/08/24 09/08/24 09/08/24 Range/Units 18:37 18:37 21:12 AST 25 (14-36) U/L Troponin I <0.012 <0.012 (0.000-0.034) ng/mL 09/08/24 Range/Units 23:33 AST (14-36) U/L Troponin I <0.012 (0.000-0.034) ng/mL Coagulation 09/08/24 Range/Units 18:37 PT 10.2 (10.0-12.5) sec APTT 25.0 (22.0-30.0) sec CBC 09/08/24 Range/Units 18:37 WBC 7.7 (3.8-10.6) k/uL RBC 4.76 (3.80-5.40) m/uL Hgb 13.5 (11.4-16.0) gm/dL Hct 41.8 (34.0-46.0) % Plt Count 259 (150-450) k/uL Comprehensive Metabolic Panel 09/08/24 Range/Units 18:37 Sodium 137 (137-145) mmol/L Potassium 3.8 (3.5-5.1) mmol/L Chloride 100 (98-107) mmol/L Carbon Dioxide 26 (22-30) mmol/L BUN 9 (7-17) mg/dL Creatinine 0.67 (0.52-1.04) mg/dL Glucose 99 (74-99) mg/dL Calcium 9.9 (8.4-10.2) mg/dL AST 25 (14-36) U/L ALT 28 (4-34) U/L Alkaline Phosphatase 79 (38-126) U/L Total Protein 7.9 (6.3-8.2) g/dL Albumin 4.8 (3.5-5.0) g/dL Current Medications Generic Name Dose Route Start Last Admin Trade Name Freq PRN Reason Stop Dose Admin Acetaminophen 650 mg 09/08/24 20:56 Acetaminophen Tab 325 Mg Tab PO Q6HR PRN Mild Pain or Fever > 100.5 Naloxone HCl 0.2 mg 09/08/24 20:56 Naloxone 0.4 Mg/Ml 1 Ml Vial IV Q2M PRN Opioid Reversal Intake and Output 09/08/24 09/09/24 09/09/24 22:59 06:59 14:59 Other: Weight 66.678 kg 09/08/24 18:37 09/08/24 18:37
[2024-09-09 12:51] LABS: Chol/HDL Ratio 3.05 Ratio; LDL Cholesterol,Calculated 105.3 mg/dL (0.0-131.0); VLDL Calculation 18.98 mg/dL (5.00-40.00)
--- NOTE | 2024-09-09 13:09 | P.HPIM ---
History of Present Illness 48-year-old female came in the with complaints of pressure-like chest pain on the left side of the chest intermittently and without any radiation and no shortness of breath nausea vomiting. Chest pain is nonpleuritic not associate with food. Patient denied any history of coronary disease patient pain resolved at this time. EKG showed sinus rhythm without any acute ischemia chest x-ray within normal limits troponins were negative. Patient was eval by toys and games hand finisher, they are recommending echocardiogram monitoring overnight patient had chest pain again and patient will undergo stress test on Wednesday here patient does not have any chest pain patient will be discharged with outpatient stress test. Patient had history of breast cancer which is in remission REVIEW OF SYSTEMS: All other systems are negative except those mentioned in the HPI PHYSICAL EXAMINATION: GENERAL: The patient is alert and oriented x3, not in any acute distress. Well developed, well nourished. HEENT: Pupils are round and equally reacting to light. EOMI. No scleral icterus. No conjunctival pallor. Normocephalic, atraumatic. No pharyngeal erythema. No thyromegaly. CARDIOVASCULAR: S1 and S2 present. No murmurs, rubs, or gallops. PULMONARY: Chest is clear to auscultation, no wheezing or crackles. ABDOMEN: Soft, nontender, nondistended, normoactive bowel sounds. No palpable organomegaly. MUSCULOSKELETAL: No joint swelling or deformity. EXTREMITIES: No cyanosis, clubbing, or pedal edema. NEUROLOGICAL: Gross neurological examination did not reveal any focal deficits. SKIN: No rashes. Assessment and plan -Chest pain rule out acute coronary syndromes obtaining echocardiogram monitor overnight patient does not have any chest pain will be discharged tomorrow morning -Breast cancer which is in remission -Asthma without any acute exacerbation DVT prophylaxis: Early ambulation Past Medical History Past Medical History: Asthma, Cancer Additional Past Medical History / Comment(s): Stage 0 left breast cancer History of Any Multi-Drug Resistant Organisms: None Reported Past Surgical History: Breast Surgery, Tubal Ligation, Uterine Ablation Additional Past Surgical History / Comment(s): uterine ablation. left breast lumpectomy Past Anesthesia/Blood Transfusion Reactions: Postoperative Nausea & Vomiting (PONV) Past Psychological History: No Psychological Hx Reported Smoking Status: Never smoker Past Alcohol Use History: Occasional Past Drug Use History: None Reported - Past Family History Mother Family Medical History: Congestive Heart Failure (CHF) Additional Family Medical History / Comment(s): mother Medications and Allergies Home Medications Medication Instructions Recorded Confirmed Type Cetirizine HCl [Zyrtec] 10 mg PO DAILY 09/09/24 09/09/24 History Esomeprazole Magnesium [NexIUM] 20 mg PO DAILY 09/09/24 09/09/24 History Allergies Allergy/AdvReac Type Severity Reaction Status Date / Time No Known Allergies Allergy Verified 09/09/24 12:41 Physical Exam Vitals: Vital Signs Temp Pulse Pulse Resp BP BP Pulse Ox 09/09/24 07:00 98.0 F 88 16 125/83 97 09/09/24 05:37 98.2 F 68 16 127/80 97 09/08/24 18:17 97.5 F L 84 20 154/88 100 Intake and Output 09/08/24 09/09/24 09/09/24 22:59 06:59 14:59 Intake Total 118 Balance 118 Intake: Oral 118 Other: # Voids 2 Weight 66.678 kg Results CBC & Chem 7: 09/08/24 18:37 09/08/24 18:37 Labs: Abnormal Lab Results - Last 24 Hours (Table) 09/09/24 Range/Units 08:59 HDL Cholesterol 60.70 H (40.00-60.00) mg/dL
[2024-09-10 07:42] VITALS: BP 121/82; PULSE 76; RESP 16; TEMP 97.7
--- NOTE | 2024-09-10 10:20 | P.PN ---
Subjective HISTORY OF PRESENT ILLNESS: This is a 48-year-old female with a past medical history significant for asthma and breast cancer. 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 We have been asked to see the patient in consultation for chest pain. Patient examined at the bedside. Patient states that she has a history of breast cancer and has recently been off work for 10 months. 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 She states she has been having some intermittent chest discomfort over the past couple days. She states that she took off work due to the chest pain. She states on Wednesday she was still having chest pain that would come intermittently. She denied any radiation of the pain. She denied any associated shortness of breath, nausea, vomiting, lightheadedness, or dizziness. She is a non-smoker. She denies any known history of CAD. DIAGNOSTICS: - EKG reveals sinus mechanism with no signs of acute ischemia. - Chest xray negative for acute process. - Laboratory data: WBC 7.7. Hemoglobin 13.5. Platelet count 259. Sodium 137. Potassium 3.8. BUN 9. Creatinine 0.67. Magnesium 1.7. Troponin negative x 3. - Current home cardiac medications include none. - No previous echocardiogram, stress test, or cardiac catheterization available in EMR for review 09/10/2024 Patient examined this morning the bedside. Patient currently denies chest pain or pressure. She denies shortness of breath. Vital signs are stable. PHYSICAL EXAM: VITAL SIGNS: Reviewed. GENERAL: Well-developed in no acute distress. HEENT: Head is normocephalic. Pupils are equal, round. Sclerae anicteric. Mucous membranes of the mouth are moist. Neck supple. No JVD or thyromegaly LUNGS: Respirations even and unlabored. Lungs essentially clear to auscultation bilaterally. HEART: Regular rate and rhythm. S1 and S2 heard. ABDOMEN: Soft. Nondistended. Nontender. EXTREMITIES: Normal range of motion. No clubbing or cyanosis. Peripheral pulses intact. No lower extremity edema NEUROLOGIC: Awake and alert. Oriented x 3. ASSESSMENT: Chest pain, troponin negative x 3 History of breast cancer History of asthma PLAN: Continue aspirin 81 mg daily 2D echo was not obtained yesterday. We will discontinue order for echo and complete on an outpatient basis Patient may be discharged home today from a cardiac standpoint Patient to follow-up postdischarge in the office with Dr. Medina. Will plan for outpatient stress testing Nurse practitioner note has been reviewed by physician. Signing provider agrees with the documented findings, assessment, and plan of care documented by [employer] as a scribe. Objective - Vital Signs Vital signs: Vital Signs Temp 97.7 F 09/10/24 07:00 Pulse 76 09/10/24 07:00 Resp 16 09/10/24 07:00 BP 121/82 09/10/24 07:00 Pulse Ox 99 09/10/24 07:00 FiO2 Intake & Output 09/09/24 09/10/24 09/10/24 18:59 06:59 18:59 Intake Total 354 118 Balance 354 118 Weight 66.678 kg Intake: Oral 354 118 Other: Voiding Method Toilet Toilet # Voids 3 4 - Labs CBC & Chem 7: 09/08/24 18:37 09/08/24 18:37 Labs: Abnormal Lab Results - Last 24 Hours (Table) 09/09/24 Range/Units 08:59 HDL Cholesterol 60.70 H (40.00-60.00) mg/dL
--- NOTE | 2024-09-10 12:11 | P.DS ---
Providers Date of admission: 09/08/24 20:56 Attending physician: Angela Leal Consults: 09/08/24 20:56 Consult Physician Routine Consulting Provider: Ailyn Ervin Consult Reason/Comments: CP Do you want consulting provider notified?: Yes Primary care physician: [facility] Course: 48-year-old female came in the with complaints of pressure-like chest pain on the left side of the chest intermittently and without any radiation and no shortness of breath nausea vomiting. Chest pain is nonpleuritic not associate with food. Patient denied any history of coronary disease patient pain resolved at this time. EKG showed sinus rhythm without any acute ischemia chest x-ray within normal limits troponins were negative. Patient was eval by residential substance abuse counselor, they are recommending echocardiogram monitoring overnight patient had chest pain again and patient will undergo stress test on Wednesday here patient does not have any chest pain patient will be discharged with outpatient stress test. Patient had history of breast cancer which is in remission 09/10/2024 Patient is cleared by cardiology unfortunately unable to get echocardiogram patient will undergo echocardiogram as an outpatient. PHYSICAL EXAMINATION: GENERAL: The patient is alert and oriented x3, not in any acute distress. Well developed, well nourished. HEENT: Pupils are round and equally reacting to light. EOMI. No scleral icterus. No conjunctival pallor. Normocephalic, atraumatic. No pharyngeal erythema. No thyromegaly. CARDIOVASCULAR: S1 and S2 present. No murmurs, rubs, or gallops. PULMONARY: Chest is clear to auscultation, no wheezing or crackles. ABDOMEN: Soft, nontender, nondistended, normoactive bowel sounds. No palpable organomegaly. MUSCULOSKELETAL: No joint swelling or deformity. EXTREMITIES: No cyanosis, clubbing, or pedal edema. NEUROLOGICAL: Gross neurological examination did not reveal any focal deficits. SKIN: No rashes. Assessment and plan -Chest pain rule out acute coronary syndromes patient will undergo echocardiogram as outpatient patient does not have any more episodes of chest pain is being discharged today cleared by cardiology follow-up with cardiology as an outpatient -Breast cancer which is in remission -Asthma without any acute exacerbation Patient Condition at Discharge: Stable Plan - Discharge Summary Discharge Rx Participant: Yes New Discharge Prescriptions: No Action Esomeprazole Magnesium [NexIUM] 20 mg PO DAILY Cetirizine HCl [Zyrtec] 10 mg PO DAILY Discharge Medication List Cetirizine HCl [Zyrtec] 10 mg PO DAILY 09/09/24 [History] Esomeprazole Magnesium [NexIUM] 20 mg PO DAILY 09/09/24 [History] Follow up Appointment(s)/Referral(s): Andriy Medina MD [STAFF PHYSICIAN] - 1 Week Jose Williamson MD [Primary Care Provider] - 1-2 days Patient Instructions/Handouts: Chest Pain (DC), Stress Echocardiogram (GEN) Discharge Disposition: HOME SELF-CARE
== END 2024-09-10 12:14 | disposition home or self-care (01) ==
LOC: EC 18:12 → 6NMEDSUR 20:56
PROVIDERS: ADMIT Hospitalist; ATTEND Hospitalist
DX: R07.89 Other chest pain (principal); J45.909 Unspecified asthma, uncomplicated; R20.2 Paresthesia of skin; M79.602 Pain in left arm; M79.601 Pain in right arm; Z79.810 Long term (current) use of selective estrogen receptor modulators (SERMs); Z79.899 Other long term (current) drug therapy; Z85.3 Personal history of malignant neoplasm of breast; Z82.49 Family history of ischemic heart disease and other diseases of the circulatory system
CPT/HCPCS: 99285; 36415; 93005; 80061; 80053; 83735; 84484; 85025; 85610; 85730; 83036; 71046; G0378 ×3

== ENCOUNTER → 2024-10-24 | Outpatient (CLI) | payer BC ==
--- NOTE | 2024-10-24 13:37 | MM ---
Reason for Exam: Screening (asymptomatic). Last mammogram was performed 1 year(s) and 6 month(s) ago. Patient History: Menarche at age 9. First Full-Term at age 14. Postmenopausal. Breast cancer, left, age 45. Previous chest radiation therapy at age 45. Patient tested for BRCA2 outcome was negative. Hormonal Contraceptives, starting at age 15 for 10 years. Currently using Tamoxifen, starting at age 45. 2023, Reduction on the Right side. Reduction on the Right side. 07/28/2021, Lumpectomy on the Left side. 07/28/2021, Malignant Core Biopsy on the left side. 06/16/2021, Malignant Core Biopsy on the left side. Niece had breast cancer, age 38. Prior Study Comparison: 04/01/2022 Bilateral MG 3D diag mammo w/cad JABIER, [facility]. 04/02/2023 Bilateral MG 3D diag mammo w/cad JABIER, [facility]. 04/11/2024 Left MG 3D diag mammo w/cad LT, [facility]. Tissue Density: Right: The breasts are heterogeneously dense, which may obscure small masses. Findings: Benign-appearing right axillary lymph nodes are redemonstrated. There is no suspicious new group of microcalcifications or new suspicious mass in the right breast. Overall Assessment: Benign, BI-RAD 2 Management: Screening Mammogram of both breasts in 6 months. Patient due for left breast mammogram in 6 months time. Bilateral study at that time get patient back on schedule Patient should continue monthly self-breast exams. A clinical breast exam by your physician is recommended on an annual basis. This exam should not preclude additional follow-up of suspicious palpable abnormalities. Note on Johanne scores and lifetime risk: 1. A Johanne score greater than 3% is considered moderate risk. If this is the case, consider specialist referral to assess eligibility for a risk reducing agent. 2. If overall lifetime risk for the development of breast cancer is 20% or higher, the patient may qualify for future screening with alternating mammogram and breast MRI. [facility], , 10/24/2024 1:33 PM. Electronically signed and approved by: Maciej Reed M.D.
== END | disposition home or self-care (01) ==
LOC: RADMAMWWP 10:02
PROVIDERS: ATTEND Radiology Radiation Oncology
DX: Z12.31 Encounter for screening mammogram for malignant neoplasm of breast (principal); Z09 Encounter for follow-up examination after completed treatment for conditions other than malignant neoplasm; D05.12 Intraductal carcinoma in situ of left breast; Z17.0 Estrogen receptor positive status [ER+]; R92.331 Mammographic heterogeneous density, right breast; Z78.0 Asymptomatic menopausal state; Z85.3 Personal history of malignant neoplasm of breast; Z92.0 Personal history of contraception
CPT/HCPCS: 77067

== ENCOUNTER → 2024-12-01 | Outpatient (CLI) | payer BC ==
--- NOTE | 2024-12-01 13:18 | USB ---
Reason for Exam: Clinical finding. Patient History: Menarche at age 9. First Full-Term at age 14. Postmenopausal. Breast cancer, left, age 45. Previous chest radiation therapy at age 45. Patient tested for BRCA2 outcome was negative. Hormonal Contraceptives, starting at age 15 for 10 years. Currently using Tamoxifen, starting at age 45. 2023, Reduction on the Right side. Reduction on the Right side. 07/28/2021, Lumpectomy on the Left side. 07/28/2021, Malignant Core Biopsy on the left side. 06/16/2021, Malignant Core Biopsy on the left side. Niece had breast cancer, age 38. Technique: Method: Whole Breast Handheld. Prior Study Comparison: 04/02/2023 Bilateral MG 3D diag mammo w/cad JABIER, [facility]. 04/11/2024 Left MG 3D diag mammo w/cad LT, [facility]. 10/24/2024 Right MG 3D scr raisa unilateral w/cad., [facility]. Findings: The whole breast of both breasts, the axilla of both breasts and the retroareolar of both breasts were scanned. Technique utilized:US breast complete BILAT Image; Ultrasound imaging of: All 4 quadrants, the retroareolar region and axilla. No evidence for organizing fluid collection or mass. Overall Assessment: Benign, BI-RAD 2 Management: Screening Mammogram of both breasts in 1 year. A clinical breast exam by your physician is recommended on an annual basis and results should be correlated with mammographic findings. This exam should not preclude additional follow-up of suspicious palpable abnormalities. Results were given to the patient verbally at the time of exam. [facility], , 12/01/2024 1:15 PM. Electronically signed and approved by: José Luis Rodriguez DO
== END | disposition home or self-care (01) ==
LOC: RADUSWWP 12:29
PROVIDERS: ATTEND Internal Medicine Hematology & Oncology
DX: N64.4 Mastodynia (principal); Z78.0 Asymptomatic menopausal state; Z80.3 Family history of malignant neoplasm of breast; Z92.0 Personal history of contraception; Z85.3 Personal history of malignant neoplasm of breast